=== PATIENT | female | born 1980 | race Caucasian/White ===

== ENCOUNTER 2018-06-22 12:09 | Emergency (ER) | payer MEDICAID, SELFPAY ==
[2018-06-22 12:36] VITALS: BP 102/76; PULSE 74; RESP 14; TEMP 36.7; O2SAT 100
== END 2018-06-22 13:49 ==
LOC: ER 14:11
PROVIDERS: PCP Nurse Practitioner
DX: Z53.21 Procedure and treatment not carried out due to patient leaving prior to being seen by health care provider (principal)

== ENCOUNTER 2018-06-23 07:43 | Emergency (ER) | payer MEDICAID, SELFPAY ==
[2018-06-23 07:50] VITALS: BP 119/68; PULSE 64; RESP 16; TEMP 37; O2SAT 100
--- NOTE | 2018-06-23 07:54 | ED.GENADUL_ITS ---
Discharge Plan Disposition Patient Disposition: HOME Condition: Good Discharge Details Chief Complaint: Cellulitis Clinical Impression: Cellulitis of right middle finger Primary Care Provider: Mine Payan ED Provider: Bo Tristan Home Meds and New Rx's Prescriptions: New sulfamethoxazole-trimethoprim [Bactrim DS] 800-160 mg tablet 1 tab PO BID 7 Days Qty: 14 RF: 0 cephalexin 500 mg capsule 500 mg PO QID 7 Days Qty: 28 RF: 0 Discharge Instructions Instructions: Cellulitis (ED) Additional Instructions: if you have severe worsening of pain or fevers return to the emergency department for reevaluation you can take 1000mg tylenol and 600mg ibuprofen every 6 hours as needed for pain Discharge Data Discharge Physician: Bo Tristan Medical Decision Making 38 yo female who denies chronic med problems comes in with right finger redness. She states the redness started a few days ago after she had a hang nail there for a week. She now statess she feels some burning pain in her arm so came here. She appears to have a distal finger cellulitis, will start abx. No findings at this time to suggest flexor tenosynovitis, no severe pain or crepitus to suggest nec fasc and no drainage or fluctuance so doubt abscess or paronychia. No fevers and appears well so doubt sepsis as well. Advised f/u with pcp in a week and return precautions given Differential Diagnosis cellulitis, paronychia, abscess HPI General Mode of arrival: ambulatory . Date/Time Provider Initiated Documentation: 06/23/18 07:49 . Limitations to Documentation: no limitations . Information obtained by: patient . History of Present Illness 38 year old F presents to the emergency department with the chief complaint of right finger redness, described as mild, with intensity rated at 4. Quality is described as burning, and is localized to the right and upper extremity. Patient started experiencing this day(s) (3) and it has been constant. No relieving factors improve symptom(s), No exacerbating factors reported . Patient notes no other symptoms.. Patient did receive the following treatments prior to arrival, none Related Data Home Medications Medication Instructions Recorded Confirmed cephalexin 500 mg PO QID 7 Days #28 cap 06/23/18 sulfamethoxazole-trimethoprim 1 tab PO BID 7 Days #14 tab 06/23/18 [Bactrim DS] Previous Rx's Medication Instructions Recorded cephalexin 500 mg PO QID 7 Days #28 cap 06/23/18 sulfamethoxazole-trimethoprim 1 tab PO BID 7 Days #14 tab 06/23/18 [Bactrim DS] Allergies Allergy/AdvReac Type Severity Reaction Status Date / Time No Known Allergies Allergy Unverified 06/23/18 07:55 General DIEGO: 4 Review of Systems Review of Systems All systems reviewed & are unremarkable except as noted in HPI and below Constitutional Denies chills, Denies fever(s) and Denies weakness Eyes Denies loss of vision ENT Denies change in voice Cardiovascular Denies chest pain and Denies dyspnea Respiratory Denies dyspnea Gastrointestinal Denies abdominal pain, Denies nausea and Denies vomiting Genitourinary Denies dysuria Musculoskeletal Denies joint swelling Integumentary/Breasts Denies rash Neurologic Denies loss of vision and Denies weakness Psychiatric Denies depression Endocrine Denies cold intolerance and Denies heat intolerance Allergic/Immunologic Denies urticaria PFSH Social History Smoking/Tobacco Use Status: Never Exam Const General: no acute distress Orientation: alert HENMT Head: normal to inspection Ears: external ears normal General nose exam: external nose normal Mouth: moist mucous membranes Eyes General: appearance normal, both eyes and all related structures Neck Neck: normal visual inspection Resp Effort & Inspection: normal respiratory effort and able to speak in complete sentences Cardio Rate: regular rate Skin General skin exam: other (erythema of posterior distal right middle finger just proximal to the finger nail and extends to the dip joint. Has full rom of the finger with no pain over flexor tendon, no pain on felxion or extension of any finger or wrist, no redness noted of hand and arm) Neuro General: alert and oriented x3 Extrem General: full ROM and normal capillary refill Psych Mental Status: mental status grossly normal
[2018-06-23] MEDS: Cephalexin 500 MG CAP PO (08:00)
[2018-06-23] MEDS: Sulfameth/Trimeth DS TAB 1 TAB PO (08:00)
== END 2018-06-23 08:10 | disposition home or self-care (01) ==
PROVIDERS: Emergency Provider Emergency Medicine; PCP Nurse Practitioner
DX: L03.011 Cellulitis of right finger (principal)
CPT/HCPCS: 99283

== ENCOUNTER 2018-08-22 11:24 | Emergency (ER) | payer MEDICAID, SELFPAY ==
[2018-08-22 11:34] VITALS: BP 118/67; PULSE 80; RESP 14; TEMP 37.2; O2SAT 96
--- NOTE | 2018-08-22 11:37 | W.ED.GENAD ---
Discharge Plan Disposition Patient Disposition: HOME Condition: Stable Discharge Details Chief Complaint: Sorethroat Clinical Impression: Pharyngitis Primary Care Provider: Mine Payan ED Provider: Bo Tristan Home Meds and New Rx's Prescriptions: No Action No Known Home Meds RF: 0 Discharge Instructions Instructions: Pharyngitis (ED) Additional Instructions: your strep test was negative Continue to drink fluids to stay hydrated you can take 1000mg tylenol and 600mg ibuprofen every 6 hours for pain as needed if you have difficulty breathing or inability to swallow liquids return to the emergency department Medical Decision Making 38 yo female who denies chronic medical problems comes in with 3 days of chills, no fevers, body aches and sore throat. States had flu test done with pcp yesterday that was negative but continues to have symptoms so came here. Is speaking in full sentences without evidence of respiratory distress, no stridor or drooling and appears well systemically. Does have mild posterior erythema, midline uvula, no pain over hyoid or restricted neck movements, no findings to suggest rpa, bellman captain, epiglotitis. Suspect viral pharyngitis but will check for strep and treat if positive. Advised f/u with pcp if no improvement and return precautions given Differential Diagnosis viral vs strep pharyngitis, influenza, mono HPI General Mode of arrival: ambulatory. Date/Time Provider Initiated Documentation: 08/22/18 11:27. Limitations to Documentation: no limitations. Information obtained by: patient. History of Present Illness 38 year old F presents to the emergency department with the chief complaint of sore throat, described as moderate, with intensity rated at 4. Quality is described as aching, Patient started experiencing this day(s) (3) and it has been constant. No relieving factors improve symptom(s), No exacerbating factors reported . Patient notes other (body aches, chills). Patient did receive the following treatments prior to arrival, none Related Data Home Medications Medication Instructions Recorded Confirmed Unknown [No Known Home Meds] 08/22/18 08/22/18 Allergies Allergy/AdvReac Type Severity Reaction Status Date / Time No Known Allergies Allergy Unverified 08/22/18 11:50 General DIEGO: 4 Review of Systems Review of Systems All systems reviewed & are unremarkable except as noted in HPI and below Constitutional Denies chills and Denies weakness ENT Denies change in voice Cardiovascular Denies dyspnea Respiratory Denies dyspnea Gastrointestinal Denies vomiting Musculoskeletal Denies joint swelling Neurologic Denies weakness Psychiatric Denies depression [facility] Social History Smoking/Tobacco Use Status: Never Exam Const General: no acute distress Orientation: alert HENMT Head: normal to inspection Ears: external ears normal General nose exam: external nose normal Mouth: moist mucous membranes Eyes General: appearance normal, both eyes and all related structures Neck Neck: normal visual inspection Resp Effort & Inspection: normal respiratory effort and able to speak in complete sentences Cardio Rate: regular rate Skin General skin exam: no rashes or lesions noted Neuro General: alert and oriented x3 Extrem General: normal to inspection Psych Mental Status: mental status grossly normal
== END 2018-08-22 11:57 | disposition home or self-care (01) ==
PROVIDERS: Emergency Provider Emergency Medicine; PCP Nurse Practitioner
DX: J02.9 Acute pharyngitis, unspecified (principal)
CPT/HCPCS: 87880; 99282; 87081

== ENCOUNTER 2018-09-11 00:42 | Outpatient (CLI) | payer MEDICAID, SELFPAY ==
--- NOTE | 2018-09-11 09:30 | DI.COMBO_ITS ---
SYMPTOM/DIAGNOSIS: H/O MULTIPLE BREAST CYSTS, DIAGNOSTIC, LUMP LT BREAST, N63.42, TENDER MAMMOGRAMS AND BILATERAL BREAST ULTRASOUND: Mammograms were interpreted according to the usual protocol including computer analysis with CAD system, tomosynthesis and C view imaging. Breast density, category D. No suspicious masses or microcalcifications are seen. There are again seen multiple well circumscribed, round masses in both breasts. The skin and axilla are unremarkable. A right breast ultrasound was performed in the area of palpable abnormality. There are numerous simple cysts within the right breast. The largest is at the 3 o'clock position and measures 2.1 by 1.8 by 2.6 cm. No solid masses are seen. A left breast ultrasound shows numerous cysts present. The largest is in the retroareolar region and measures 2.7 by 1 by 2.3 cm. There is a 1.2 by 0.6 by 1.3 cm., ovoid, radially oriented, hypoechoic avascular mass just inferior to the nipple. It is most suggestive of a benign lesion such as a fibroadenoma. IMPRESSION: No evidence for malignancy. Yearly mammography is recommended. Category 2. MQSA ASSESSMENT OF FINDINGS: Negative with benign findings. Category 2. Patient will receive a letter notifying them of these results. BI-RADS category D. The breasts are extremely dense, which lowers the sensitivity of mammography. The findings were discussed with the patient on the date of the examination.
== END 2018-09-11 01:02 ==
PROVIDERS: PCP Nurse Practitioner; Visit Provider Nurse Practitioner
DX: N64.4 Mastodynia (principal); N60.11 Diffuse cystic mastopathy of right breast; N60.12 Diffuse cystic mastopathy of left breast; D24.2 Benign neoplasm of left breast; N63.42 Unspecified lump in left breast, subareolar
CPT/HCPCS: 76642; 77062; 77066; G0279

== ENCOUNTER 2021-01-28 12:28 | Outpatient (REF) | payer MEDICAID, SELFPAY ==
--- NOTE | 2021-01-28 12:00 | PAPFT_PTH ---
PATIENT: Shira Cosme LOC: [facility] U#:[id number] AGE/SX: 40/F ROOM: RE01/28/[address]: Mine Payan : 1980 BED: DIS: 01/28/2021 SPEC #: [id number] RECD: 01/28/21 17:50 STATUS: CARRIE WILKINSON #: [id number] JOAQUÍN: 01/28/21 12:[address]: Mine Payan DEPT: [facility] Cytology RECD BY: Jossie Hunter Tissues: 1 - CX/ENDOCX FOR PAP SMEARS Procedures: PAP THIN PREP/UVM Screening HPV DNA PROBE Comments: [id number]
== END 2021-01-28 12:29 | disposition home or self-care (01) ==
LOC: LBN 12:28
PROVIDERS: PCP Nurse Practitioner; Visit Provider Nurse Practitioner
DX: Z12.4 Encounter for screening for malignant neoplasm of cervix (principal); Z11.51 Encounter for screening for human papillomavirus (HPV)
CPT/HCPCS: 88142; 87624

== ENCOUNTER 2023-06-30 18:51 | Emergency (ER) | payer MEDICAID, SELFPAY ==
[2023-06-30 18:54] VITALS: BP 136/84; PULSE 81; RESP 16; TEMP 36.7; O2SAT 100
[2023-06-30 19:16] LABS: Bilirubin Negative (Negative); Blood Large (Negative); Clarity Cloudy (Clear); Glucose Negative (Negative); Ketones Negative (Negative); Leukocyte Esterase Moderate (Negative); Nitrite Negative (Negative); Specific Gravity >= 1.030 (1.005-1.025); Urobilinogen 0.2 mg/dL (Up to 0.2); pH 5.5 (5-8)
[2023-06-30 19:32] LABS: Bacteria Few HPF (Negative); C & S Indicated? Yes; Crystals Negative HPF (Negative); Epithelial Cells Few HPF (Negative); Mucus Trace (Negative); RBC 20-50 HPF (0-2); WBC >50 HPF (0-5)
--- NOTE | 2023-06-30 19:42 | W.ED.GENAD ---
Discharge Plan Disposition Patient Disposition: Home Condition: Good Discharge Details Clinical Impression: UTI (urinary tract infection) Primary Care Provider: Mine Payan ED Provider: Ghada Juarez Home Meds and New Rx's Prescriptions: New cephalexin 500 mg tablet 500 mg PO BID 3 Days Qty: 6 0RF phenazopyridine [Pyridium] 200 mg tablet 200 mg PO TID PRN (Reason: pain) Qty: 7 0RF Discharge Instructions Instructions: Cephalexin (By mouth), Phenazopyridine (By mouth), Urinary Tract Infection in Women (ED) Additional Instructions: Your urine sample is concerning for urinary tract infection. Please continue to encourage hydration please take the antibiotics as prescribed. You may use the Pyridium as prescribed to help with symptom management but this will not clear the infection on its own. Please follow-up with your primary care in 1 week for reevaluation. If you develop any fever/chills, increased pain, pain in your back or other new/worsening symptom please seek care urgently once again. Referrals: Mine Payan [Primary Care Provider] - Medical Decision Making Patient is a pleasant 43 year old female presenting today with chief complaint of urinary tract infection symptoms. She reports that for the past 2 days she has had increased frequency, urgency, dysuria. She denies any flank pain. No sustained abdominal pain. States that she had a UTI last when she was in her mid 20s and it feels the same. She reports that this came on likely after having intercourse and not urinating afterwards. She denies any fevers or chills. Patient is status post tubal ligation. On exam, patient appears nontoxic. She has no CVA tenderness. She denies any vaginal discharge, change in her bowel habits. We will begin patient on antibiotics as urine is concerning for UTI. We will also give prescription for Azo and begin her on Pyridium here. Return precautions were discussed. Encourage follow-up with primary care in 1 week for reevaluation. All of her questions and concerns were addressed and she is in agreement this plan. HPI General Date/Time Provider Initiated Documentation: 06/30/23 19:04. Limitations to Documentation: no limitations. Information obtained by: patient and RN notes reviewed. History of Present Illness 43 year old F presents to the emergency department with the chief complaint of UTI symptoms, dysurea, frequency, urgency, described as moderate and similar to prior episodes, with intensity rated at 7. Quality is described as burning, and is localized to the pelvis. Patient reports no radiation. Patient started experiencing this day(s) (2) and it has been constant. No relieving factors improve symptom(s), No exacerbating factors reported . Patient notes no other symptoms.. Patient did receive the following treatments prior to arrival, none Related Data Home Medications Medication Instructions Recorded Confirmed cephalexin 500 mg tablet 500 mg PO BID 3 days #6 tabs 06/30/23 phenazopyridine 200 mg tablet 200 mg PO TID PRN pain #7 tabs 06/30/23 (Pyridium) Previous Rx's Medication Instructions Recorded cephalexin 500 mg tablet 500 mg PO BID 3 days #6 tabs 06/30/23 phenazopyridine 200 mg tablet 200 mg PO TID PRN pain #7 tabs 06/30/23 (Pyridium) Allergies Allergy/AdvReac Type Severity Reaction Status Date / Time No Known Allergies Allergy Unverified 08/22/18 11:50 General Stated Complaint: Urinary DIEGO: 4 Review of Systems Constitutional Constitutional: Reports as per HPI, Denies chills, Denies fever(s) and Denies poor appetite Cardiovascular Cardiovascular: Denies chest pain Respiratory Respiratory: Denies cough Gastrointestinal Gastrointestinal: Denies abdominal pain, Denies change in bowel habits, Denies nausea and Denies vomiting Genitourinary Genitourinary: Reports as per HPI Musculoskeletal Musculoskeletal: Reports as per HPI and Denies back pain Integumentary/Breasts Skin/Breast: Reports as per HPI and Denies rash PFSH All Active Problems (Updated 06/30/23 @ 19:44 by VENTURA Mcintyre) UTI (urinary tract infection) (Acute) Social History Smoking/Tobacco Use Status: Never Smoking risk assessment performed?: Yes Drug use: Never Do you feel safe in your relationship?: Yes Exam Const General: cooperative, healthy appearing, comfortable, no acute distress, well developed and well groomed Nutritional Appearance: average body habitus and well nourished Orientation: alert and awake Resp Effort & Inspection: normal respiratory effort and no respiratory distress Cardio Rate: regular rate Rhythm: regular rhythm GI Inspection: normal to inspection Palpation: soft, no guarding, not rigid and nontender Back/Spine/Pelvis Back: no CVA tenderness Skin General skin exam: no rashes or lesions noted Trauma: no lacerations or abrasions Neuro General: patient alert and patient awake Cognition: normal cognition Speech: speech normal Gait: normal gait Course Vital Signs Vital signs: Vital Signs Temperature 36.7 C 06/30/23 18:54 Pulse 81 06/30/23 18:54 Respiratory Rate 16 06/30/23 18:54 Blood Pressure 136/84 06/30/23 18:54 Pulse Oximetry 100 06/30/23 18:54 Temperature 36.7 C 06/30/23 18:54 Temperature Source Temporal Artery Scan 06/30/23 18:54 Pulse 81 06/30/23 18:54 Respiratory Rate 16 06/30/23 18:54 Blood Pressure 136/84 06/30/23 18:54 Blood Pressure Position Sitting 06/30/23 18:54 Pulse Oximetry 100 06/30/23 18:54 Oxygen Delivery Method Room Air 06/30/23 18:54 Oxygen Flow Rate 0 06/30/23 18:54 Pain Level 7 06/30/23 18:54 Lab/Test Results Lab/Test Results: 06/30/23 19:06 Urine - Reflex from Ua Urine Culture - Pending Laboratory Tests Range/Units 06/30/23 19:06 Urine Color (Yellow) Yellow Urine Clarity (Clear) Cloudy Urine pH (5-8) 5.5 Ur Specific [place] (1.005-1.025) >= 1.030 H Urine Protein (Negative) mg/dL 100 H Urine Ketones (Negative) mg/dL Negative Urine Blood (Negative) Large H Urine Nitrite (Negative) Negative Urine Bilirubin (Negative) Negative Urine Urobilinogen (Up to 0.2) mg/dL 0.2 Ur Leukocyte Esterase (Negative) Moderate H Urine RBC (0-2) HPF 20-50 H Urine WBC (0-5) HPF >50 H Ur Epithelial Cells (Negative) HPF Few Urine Crystals (Negative) HPF Negative Urine Bacteria (Negative) HPF Few Urine Mucus (Negative) Trace Ur Culture Indicated? Yes Urine Glucose (Negative) mg/dL Negative
[2023-06-30 19:59] VITALS: BP 136/84; PULSE 81; RESP 16; TEMP 36.7; O2SAT 100
[2023-06-30] MEDS: Cephalexin 500 MG CAP, 4 CAPS/BTL PO (20:01)
[2023-06-30] MEDS: Phenazopyridine 100 MG TAB, 2 TABS/BTL PO (20:01)
--- NOTE | 2023-07-02 09:12 | NUR.NOTE ---
Accessed pt chart to determine antibiotic on discharge for urine culture. Nursing Note:
== END 2023-06-30 20:00 | disposition home or self-care (01) ==
PROVIDERS: Emergency Provider Physician Assistant; PCP Nurse Practitioner
DX: N39.0 Urinary tract infection, site not specified (principal)
CPT/HCPCS: 87077; 99283; 81003; 81015; 87086; 87186

== ENCOUNTER 2023-08-21 16:22 | Outpatient (REF) | payer MEDICAID, SELFPAY ==
[2023-08-21 19:07] LABS: ALT 18 U/L (14-59); AST 11 U/L (15-37); Albumin 3.9 g/dL (3.4-5.0); Alkaline Phosphatase 45 U/L (46-116); Anion Gap 9.6 mmol/L (3-11); BUN 17 mg/dL (7-18); Bilirubin, Total 1.3 mg/dL (0.2-1.0); CO2 27.4 mmol/L (21.0-32.0); Calcium 9.1 mg/dL (8.5-10.1); Calculated LDL 168 mg/dL (<100); Chloride 103 mmol/L (98-107); Cholesterol 235 mg/dL (<200); Glucose 105 mg/dL (74-106); HDL Cholesterol 53 mg/dL (40-60); Potassium 3.5 mmol/L (3.5-5.1); Sodium 140 mmol/L (136-145); TSH (W/Ref FT4) 1.27 uIU/mL (0.36-3.74); Total Protein 7.4 g/dL (6.4-8.2); Triglyceride 74 mg/dL (<150)
== END 2023-08-21 16:23 | disposition home or self-care (01) ==
LOC: NCHCN 16:22
PROVIDERS: PCP Nurse Practitioner Family; Visit Provider Nurse Practitioner Family
DX: F32.89 Other specified depressive episodes (principal); E78.89 Other lipoprotein metabolism disorders
CPT/HCPCS: 80053; 80061; 84443

== ENCOUNTER → 2023-08-29 01:37 | Outpatient (CLI) | payer MEDICAID, SELFPAY ==
--- NOTE | 2023-08-29 | DI.MAMMO_ITS ---
Exam(s) MAMMO SCREENING EXAM: MAMMO SCREENING CLINICAL HISTORY: SCREENING FOR BREAST CANCER Z12.39. TECHNIQUE: Bilateral full field digital CC and MLO mammographic images were obtained with 3D tomosyn thesis and utilizing computer aided detection (CAD). COMPARISON: Prior mammograms were reviewed. Most recent mammogram in our PACS is 2018. FINDINGS: The fibroglandular tissue pattern is again noted to be dense, this somewhat decreasing the sensitivit y of the mammogram for finding an underlying lesions. There are numerous well-defined nodules in both breasts, more so than previous. The largest is at ap proximately 12 o'clock position of the right breast and measures approximately 4 by 3 cm. The larges t in the left breast appears to be in the upper outer quadrant, measuring approximately 3.5 x 2.5 cm. There are no obvious new spiculated masses nor malignant appearing microcalcification groups. There is no new significant architectural distortion nor skin thickening-retraction. IMPRESSION: Numerous bilateral well-defined nodules throughout both breasts, more so than previous. Recommend bi lateral complete breast ultrasound to ensure that these are all benign cysts and that there are no so lid lesions hidden among the numerous cysts. BI-RADS Category 0 - Assessment Incomplete: Need additional imaging evaluation Breast Density - Category D - Extremely dense Breast density Category C or D implies that the patient has dense breast tissue. Dense breast tissue can make it harder to find cancer on a mammogram. Dense breast tissue is also associated with an incr eased risk of breast cancer. This information about the result of the mammogram report was provided to the patient to raise their awareness. Use this report when you speak with the patient about their risks for breast cancer, which includes their family history. At that time, you may recommend additional screening tests (Ultrasoun d or MRI) as these tests may add significant information. A negative radiographic report should not delay biopsy if a dominant or clinically suspicious mass is present. Up to ten percent of cancers are not identified on mammography. A negative report may reinforce clinical impression. Adenosis and dense breasts may obscure an underlying neoplasm. False positive reports average 6 to 10%. Patient will receive a letter notifying them of these results.
== END ==
PROVIDERS: PCP Nurse Practitioner Family; Visit Provider Nurse Practitioner Family
DX: Z12.31 Encounter for screening mammogram for malignant neoplasm of breast (principal); N63.21 Unspecified lump in the left breast, upper outer quadrant
CPT/HCPCS: 77063; 77067

== ENCOUNTER → 2023-08-31 10:53 | Outpatient (CLI) | payer MEDICAID, SELFPAY ==
--- NOTE | 2023-08-31 | DI.US_ITS ---
Exam(s) US BREAST LT COMPLETE US BREAST RT COMPLETE EXAM: US BREAST RT COMPLETE CLINICAL HISTORY: F/U MAMMO, R92.8,BILAT NODULES TECHNIQUE: Complete bilateral breast ultrasound.. COMPARISON: [facility] Diagnostic Bilat Mammo from 12/28/2016 US RIGHT BREAST ULTRASOUND from 12/28/2016 [facility] mammo diagnostic BI from 09/11/2018 US US breast RT limited from 09/11/2018 US US breast LT limited from 09/11/2018 [facility] MAMMO SCREENING from 08/29/2023 US US BREAST LT COMPLETE from 08/31/2023 FINDINGS: Innumerable bilateral cysts. Largest on the right is in the 12 o'clock position 1 cm from the nipple measuring 3.5 cm in greatest dimension. Largest on the left measures 2.1 cm in maximal dimension 6 o'clock position 2 cm from the nipple. No suspicious solid masses, hypoechoic foci, areas of abnormal shadowing, or areas of skin thickening . IMPRESSION: No sonographically suspicious finding. Numerous bilateral cysts. BI-RADS Category 2 - Benign Findings, yearly screening mammography is recommended. DATA REPOSITORY:
== END ==
PROVIDERS: PCP Nurse Practitioner Family; Visit Provider Nurse Practitioner Family
DX: Z12.31 Encounter for screening mammogram for malignant neoplasm of breast (principal); R92.8 Other abnormal and inconclusive findings on diagnostic imaging of breast
CPT/HCPCS: 76642

== ENCOUNTER 2023-12-21 14:05 | Emergency (ER) | payer MEDICAID, SELFPAY ==
--- NOTE | 2023-12-21 14:00 | DI.RAD_ITS ---
Exam(s) XR KNEE RT 3V AP,LAT,SUN EXAM: XR KNEE RT 3V AP,LAT,SUN CLINICAL HISTORY: medially torqued knee, medial pain. TECHNIQUE: 2D digital imaging was performed. Three views. COMPARISON: No exams were available for comparison FINDINGS: BONES: No acute fracture is present. No bony destructive lesion is seen. JOINTS: The knee is normally aligned. No joint effusion is seen. The joint spaces are maintained. No significant degenerative changes. SOFT TISSUE: Normal. IMPRESSION: Unremarkable radiographs of the right knee. DATA REPOSITORY: RADIATION DOSE DELIVERED:
[2023-12-21 14:09] VITALS: BP 148/64; PULSE 82; RESP 16; TEMP 36.8; O2SAT 100
--- NOTE | 2023-12-21 14:28 | ED.GENADUL_ITS ---
Discharge Plan Disposition Patient Disposition: Home Condition: Good Discharge Details Chief Complaint: Orthopedic Clinical Impression: Right knee sprain, MCL sprain of right knee Primary Care Provider: EDIE STRAUSS ED Provider: Ru Villalobos Home Meds and New Rx's Prescriptions: No Action phenazopyridine [Pyridium] 200 mg tablet 200 mg PO TID PRN (Reason: pain) Qty: 7 0RF Discharge Instructions Instructions: Knee Sprain (ED) Additional Instructions: At this time the x-ray is negative for any evidence of fracture, I do suspect that there is a ligamentous injury. Please keep the knee immobilizer on for the next week, and if you still persistent pain you can transition to a hinged knee brace after this. We have placed a referral with the wildfire prevention specialist, chavo han will contact you for an appointment time. Please take Tylenol and Motrin as needed for pain. Please ice your knee regularly. If you notice any worsening of your symptoms, or any new symptoms such as vomiting, diarrhea, fever, chills, shortness of breath, chest pain, numbness, weakness, or fainting , please return immediately to the emergency department for reevaluation. Please follow up with your primary care provider as soon as possible for reassessment and reevaluation. As always, it was a pleasure participating in your medical care today. Referrals: EDIE STRAUSS, [employer] [Primary Care Provider] - Laurent Hooker MD [ [facility] STAFF PHYSICIAN] - HPI General Date/Time Provider Initiated Documentation: 12/21/23 14:14 . HPI Narrative: 43-year-old female with a past medical history of knee that pops out migraine headaches, tubal ligation presents today for right-sided knee pain. She states that a few times in the past her knee has gotten in a funny direction, but usually just gets back to the normal placement and she is fine and is able to continue walking and living. However today she was carrying a heavy bag of laundry, pivoted, and she noticed that the knee moved medially. It went back into place on its own and then she had severe pain after that. This was 2 hours prior to arrival. Pain is worse with movement. It is extremely painful to bear weight. She denies any numbness or tingling. She denies any falls or trauma otherwise. No other complaints at this time. She has not taken any medication for pain. Related Data Home Medications Medication Instructions Recorded Confirmed phenazopyridine 200 mg tablet 200 mg PO TID PRN pain #7 tabs 06/30/23 (Pyridium) Previous Rx's Medication Instructions Recorded phenazopyridine 200 mg tablet 200 mg PO TID PRN pain #7 tabs 06/30/23 (Pyridium) Allergies Allergy/AdvReac Type Severity Reaction Status Date / Time No Known Allergies Allergy Unverified 08/22/18 11:50 General Stated Complaint: Orthopedic DIEGO: 4 Review of Systems All systems reviewed & are unremarkable except as noted in HPI and below Exam Narrative Exam Narrative: 1.Const: Well-nourished, Well-developed, appearing stated age 2.Eyes: PERRL, no conjunctival injection, and symmetrical lids. 3.ENT: Atraumatic external nose and ears. Moist MM. Neck: Symmetric, trachea midline, No thyromegaly. 4.CVS: +S1/S2, No murmurs or gallops. Peripheral pulses 2+ and equal in all extremities. Brisk capillary refill in all extremities. 5.RESP: Unlabored respiratory effort. Clear to auscultation bilaterally. No wheezes rales or rhonchi 6.GI: Soft, Nontender/Nondistended, No hepatosplenomegaly. No guarding or rebound. 7.MSK: Left lower extremity unremarkable. Right lower extremity demonstrates swelling in the medial aspect of the knee. No palpable tenderness over the patella. Mild pain and tenderness over the medial aspect of the knee/tibial plateau. No fibular tenderness. No distal tibia tenderness. Movement and exam is limited secondary to pain, no gross laxity for varus stressing or anterior posterior drawer testing, however mild laxity for valgus stressing. Distal exam demonstrates +2 dorsalis pedis and posterior tibial pulses bilaterally. Brisk capillary refill. Normal sensation throughout. 8.Skin: Warm, Dry. No rashes or lesions. 9.Neuro: major gifts manager II-XII grossly intact. Sensation grossly intact, no focal neurologic deficits. 10.Psych: (AAO) x3. Appropriate mood and affect Course Vital Signs Vital signs: Vital Signs Temperature 36.8 C 12/21/23 14:09 Pulse 82 12/21/23 14:09 Respiratory Rate 16 12/21/23 14:09 Blood Pressure 148/64 H 12/21/23 14:09 Pulse Oximetry 100 12/21/23 14:09 Temperature 36.8 C 12/21/23 14:09 Temperature Source Oral 12/21/23 14:09 Pulse 82 12/21/23 14:09 Respiratory Rate 16 12/21/23 14:09 Respiratory Effort Normal 12/21/23 14:17 Blood Pressure 148/64 H 12/21/23 14:09 Pulse Oximetry 100 12/21/23 14:09 Oxygen Delivery Method Room Air 12/21/23 14:09 Oxygen Flow Rate 0 12/21/23 14:09 Pain Level 8 12/21/23 14:09 Medical Decision Making 43-year-old female with a past medical history of knee that pops out migraine headaches, tubal ligation presents today for right-sided knee pain. She states that a few times in the past her knee has gotten in a funny direction, but usually just gets back to the normal placement and she is fine and is able to continue walking and living. However today she was carrying a h eavy bag of laundry, pivoted, and she noticed that the knee moved medially. It went back into place on its own and then she had severe pain after that. This was 2 hours prior to arrival. Pain is worse with movement. It is extremely painful to bear weight. She denies any numbness or tingling. She denies any falls or trauma otherwise. No other complaints at this time. She has not taken any medication for pain. Physical exam demonstrates swelling in the medial aspect of the knee. No palpable tenderness over the patella. Mild pain and tenderness over the medial aspect of the knee/tibial plateau. No fibular tenderness. No distal tibia tenderness. Movement and exam is limited secondary to pain, no gross laxity for varus stressing or anterior posterior drawer testing, however mild laxity for valgus stressing. Distal exam demonstrates +2 dorsalis pedis and posterior tibial pulses bilaterally. Brisk capillary refill. Normal sensation throughout. Suspect ligamentous injury, however concern does include osseous injury. Medial collateral ligament is of concern. Will get an x-ray, monitor closely and reassess. 3:11 PM No evidence of vascular injury on exam, x-ray shows no evidence of acute fracture. Continue to suspect ligamentous injury. No evidence of dislocation at this time. No bruit in the posterior popliteal space. Patient stable for discharge. Will give crutches, knee immobilizer, and place outpatient referral for orthopedic follow-up. Patient will likely benefit from outpatient patient will likely benefit from outpatient physical therapy but also may need MRI depending on how she does on repeat exam after swelling has gone down pain is improved. Discussed red flags for which to return. I have extensively reviewed the treatment plan and discharge instructions with the patient and their family. I have addressed all patient concerns at this time. The patient and family was made aware of what symptoms to monitor for that would warrant a return to the emergency department. Discussed the plan with the patient and family, they demonstrate verbal understanding and agreement with our assessment and plan at this time. The documentation in this chart was dictated using [employer] dictation software. Please excuse any dictation errors. FINDINGS: BONES: No acute fracture is present. No bony destructive lesion is seen. JOINTS: The knee is normally aligned. No joint effusion is seen. The joint spaces are maintained. No significant degenerative changes. SOFT TISSUE: Normal. IMPRESSION: Unremarkable radiographs of the right knee. Quality:SDOH Health Related Social Needs: No Data to Display PFSH All Active Problems (Updated 12/21/23 @ 15:05 by Ru Villalobos DO) MCL sprain of right knee (Acute) Right knee sprain (Acute) Social History Smoking/Tobacco Use Status: Never Smoking risk assessment performed?: Yes Alcohol Intake: current Alcohol Intake frequency: a few times a month Drug use: Never Substance use type: does not use Do you feel safe at home: Yes Do you feel safe in your relationship?: Yes
[2023-12-21] MEDS: Acetaminophen 500 MG TAB 1000 MG PO (15:13)
[2023-12-21] MEDS: Ibuprofen 800 MG TAB PO (15:13)
[2023-12-21 15:15] VITALS: BP 142/80; PULSE 92; RESP 18; O2SAT 98
== END 2023-12-21 15:48 | disposition home or self-care (01) ==
PROVIDERS: Emergency Provider Student in an Organized Health Care Education/Training Program; PCP Nurse Practitioner Family
DX: S83.8X1A Sprain of other specified parts of right knee, initial encounter (principal); X50.9XXA Other and unspecified overexertion or strenuous movements or postures, initial encounter; Y93.01 Activity, walking, marching and hiking; Y92.89 Other specified places as the place of occurrence of the external cause
CPT/HCPCS: 73562; 99283

== ENCOUNTER → 2024-01-09 05:20 | Outpatient (CLI) | payer OTHER, SELFPAY ==
--- NOTE | 2024-01-09 07:45 | DI.MRI_ITS ---
Exam(s) MR LOWER JOINT RT WO EXAM: MR LOWER JOINT RT WO CLINICAL HISTORY: R KNEE PAIN,MCL SPRAIN,SPRAIN,S83.411A,S93.91XA. TECHNIQUE: Multiplanar multisequence MRI was performed. COMPARISON: CR XR KNEE RT 3V AP,LAT,SUN from 12/21/2023 FINDINGS: BONES: No fractures identified. There is a contusion involving the anterior medial aspect of the med ial femoral condyle. JOINTS: There is a focus of hyperintense signal seen in the cartilage overlying the medial patellar f acet with underlying marrow edema. No effusion is present. TENDONS: Extensor mechanism: Unremarkable. Medial retinaculum: Unremarkable. Lateral retinaculum: Unremarkable. Popliteus: Unremarkable. MUSCLES: Unremarkable. MENISCI: The medial meniscus is unremarkable. The lateral meniscus is unremarkable. SOFT TISSUES: There is edema in the soft tissues medially overlying the medial retinaculum and proxim al tibia. There is a small popliteal cyst. LIGAMENTS: Anterior Cruciate: Unremarkable. Posterior Cruciate: Unremarkable. Medial Collateral:Unremarkable. There is normal signal seen within and around the medial collateral l igament. Lateral Collateral: Unremarkable. OTHER: IMPRESSION: 1. Normal appearance of the medial collateral ligament. 2. Marrow contusion involving the medial femoral condyle without evidence of a fracture. 3. Osteochondral injury involving the medial patella. 4. Mild edema seen in the soft tissues of the medial knee. 5. No evidence of a meniscal or ligament tear. DATA REPOSITORY:
== END ==
PROVIDERS: PCP Nurse Practitioner Family; Visit Provider Student in an Organized Health Care Education/Training Program
DX: S83.411A Sprain of medial collateral ligament of right knee, initial encounter (principal); X58.XXXA Exposure to other specified factors, initial encounter
CPT/HCPCS: 73721

== ENCOUNTER 2024-11-04 01:29 | Outpatient (CLI) | payer OTHER, MEDICAID, SELFPAY ==
--- NOTE | 2024-11-04 | DI.MAMMO_ITS ---
Exam(s) MAMMO SCREENING EXAM: MAMMO SCREENING CLINICAL HISTORY: SCREENING MAMMO Z12.31. TECHNIQUE: Bilateral full field digital CC and MLO mammographic images were obtained with 3D tomosyn thesis and utilizing computer aided detection (CAD). COMPARISON: Prior mammograms were reviewed. FINDINGS: Again noted is dense bilateral fibroglandular tissue and numerous relatively well-defined nodules of multiple sizes, these having been shown to be cysts by prior ultrasound. Most recent ultrasound exam ination was 08/31/2023 Some have increased in size of some of decreased in size when compared to prior mammogram August 23 There are no obvious new spiculated masses nor new malignant appearing microcalcification groups. There is no significant architectural distortion nor skin thickening-retraction. IMPRESSION: Multiple bilateral breast nodules again noted, some larger and some smaller than previous. Bilateral complete breast ultrasound recommended. BI-RADS Category 0 - Incomplete: Need additional imaging evaluation Breast Density - Category C - Heterogeneously dense Breast density Category C or D implies that the patient has dense breast tissue. Dense breast tissue can make it harder to find cancer on a mammogram. Dense breast tissue is also associated with an incr eased risk of breast cancer. This information about the result of the mammogram report was provided to the patient to raise their awareness. Use this report when you speak with the patient about their risks for breast cancer, which includes their family history. At that time, you may recommend additional screening tests (Ultrasoun d or MRI) as these tests may add significant information. A negative radiographic report should not delay biopsy if a dominant or clinically suspicious mass is present. Up to ten percent of cancers are not identified on mammography. A negative report may reinforce clinical impression. Adenosis and dense breasts may obscure an underlying neoplasm. False positive reports average 6 to 10%. Patient will receive a letter notifying them of these results.
== END 2024-11-04 01:49 ==
LOC: DI 01:29
PROVIDERS: PCP Nurse Practitioner Family; Visit Provider Nurse Practitioner Family
DX: Z12.31 Encounter for screening mammogram for malignant neoplasm of breast (principal); R92.333 Mammographic heterogeneous density, bilateral breasts
CPT/HCPCS: 77063; 77067